=== PATIENT | female | born 1980 | race Caucasian/White ===

== ENCOUNTER 2017-08-09 02:42 | Emergency (ER) | payer OTHER ==
[~2017-08-09] VITALS: Ht 172.7 cm; Wt 83.9 kg
[~2017-08-09 02:42] MED LIST: ALBU90OI INH; Cipro500 MG PO; FLUO10; IBUP800 PO; Keflex500 MG PO; LEVFLO500 PO; OXYACE5T PO; PHENA200 PO; Percocet 5-3251 EACH PO; SILENOR3 MG; Zithromax250 MG PO
[2017-08-09] MEDS ORDERED: TOPI25 PO (03:00)
[2017-08-09] MEDS ORDERED: NITR100 PO (03:01)
[2017-08-09] MEDS ORDERED: Prozac20 MG PO (03:01)
[2017-08-09] MEDS ORDERED: METR500 PO (03:02)
== END 2017-08-09 04:24 | disposition home or self-care (01) ==
LOC: ER 02:42
DX: S40.022A Contusion of left upper arm, initial encounter (principal); S40.021A Contusion of right upper arm, initial encounter; Y04.8XXA Assault by other bodily force, initial encounter; Z88.0 Allergy status to penicillin; Z88.8 Allergy status to other drugs, medicaments and biological substances; Z79.899 Other long term (current) drug therapy
CPT/HCPCS: 73030; 73070; 99283

== ENCOUNTER 2021-11-28 18:01 | Emergency (ER) | payer OTHER ==
[~2021-11-28] VITALS: Ht 172.7 cm; Wt 89.8 kg
[~2021-11-28 18:01] MED LIST changes: +METR500 PO; +NITR100 PO; +Prozac20 MG PO; +TOPI25 PO
[2021-11-28 19:02] LABS: BASOPHILS ABSOLUTE AUTO 0.07 K/mm3 (0.00-0.23); BASOPHILS PERCENT AUTO 0 % (0-2); EOSINOPHILS ABSOLUTE AUTO 0.12 K/mm3 (0.00-0.68); EOSINOPHILS PERCENT AUTO 1 % (0-6); Hematocrit 44.5 % (33.0-51.0); Hemoglobin 14.6 g/dL (11.5-16.0); IMMATURE GRAN ABSOLUTE AUTO 0.04 K/mm3 (0.00-0.10); IMMATURE GRAN PERCENT AUTO 0 % (0-1); LYMPHOCYTES ABSOLUTE AUTO 3.32 K/mm3 (0.84-5.20); LYMPHOCYTES PERCENT AUTO 20 % (21-46); MONOCYTES ABSOLUTE AUTO 1.03 K/mm3 (0.16-1.47); MONOCYTES PERCENT AUTO 6 % (4-13); Mean Corpuscular HGB 29.4 pg (26.0-34.0); Mean Corpuscular HGB Conc 32.8 g/dL (31.5-36.5); Mean Corpuscular Volume 90 fL (80-100); Mean Platelet Volume 10.3 fL (9.1-12.4); NEUTROPHILS ABSOLUTE AUTO 11.76 K/mm3 (1.96-9.15); NEUTROPHILS PERCENT AUTO 72 % (41-73); Platelet Count 373 K/mm3 (150-400); RDW Coefficient Variation 12.6 % (11.7-14.2); RDW Standard Deviation 41.4 fL (35.1-46.3); Red Blood Cell Count 4.97 M/mm3 (3.80-5.20); White Blood Cell Count 16.34 K/mm3 (4.00-11.30)
[2021-11-28 19:25] LABS: Alanine Aminotransfer (ALT/SGP 34 U/L (12-78); Albumin, Blood 3.7 g/dL (3.4-5.0); Albumin/Globulin Ratio 0.8 (0.8-1.8); Alk Phos 113 U/L (50-136); Anion Gap 6 mmol/L (6-16); Aspartate Aminotrans (AST/SGOT 19 U/L (12-37); Bilirubin, Total 0.3 mg/dL (0.1-1.0); Blood Urea Nitrogen 12 mg/dL (8-24); Bun/Creatinine Ratio 13.7 (12.0-20.0); CO2, Blood 25 mmol/L (21-32); Chloride, Blood 106 mmol/L (98-108); Creatinine, Blood 0.87 mg/dL (0.40-1.00); Globulin, Blood 4.4 g/dL (2.2-4.0); Glomerular Filtration Rate >60 (60-); Glucose, Blood 114 mg/dL (70-99); Potassium, Blood 3.9 mmol/L (3.5-5.5); Sodium, Blood 137 mmol/L (136-145); Total Protein, Blood 8.1 g/dL (6.4-8.2)
[2021-11-28 20:37] LABS: Source, Urine Clean Catch
[2021-11-28 20:40] LABS: Bilirubin, Urine Neg (Neg); Blood, Urine Neg (Neg); Glucose Qualitative, Urine Neg (Neg); Ketones, Urine Neg (Neg); Leukocyte Esterase, Urine Neg (Neg); Nitrite, Urine Neg (Neg); Protein, Urine Neg (Neg); Specific Gravity, Urine 1.005 (1.003-1.022); Urobilinogen, Urine NORM (Normal)
[2021-11-28 20:55] LABS: Appearance, Urine Clear (Clear); Color, Urine Yellow (P-Yellow)
[2021-11-28] MEDS ORDERED: Ultram50 MG PO (23:48)
== END 2021-11-29 00:12 | disposition home or self-care (01) ==
LOC: ER 18:01
PROVIDERS: Physician Assistant
DX: R10.9 Unspecified abdominal pain (principal); D72.829 Elevated white blood cell count, unspecified; M54.9 Dorsalgia, unspecified; Z88.0 Allergy status to penicillin; Z88.8 Allergy status to other drugs, medicaments and biological substances; Z79.899 Other long term (current) drug therapy; Z87.442 Personal history of urinary calculi
CPT/HCPCS: 36415; 74177; 80053; 81003; 85025; 96374; 96376; 99284-25; J1885; J7030; Q9967

== ENCOUNTER → 2022-01-08 | Outpatient (CLI) | payer OTHER ==
[~2022-01-08] MED LIST changes: +Ultram50 MG PO
== END | disposition home or self-care (01) ==
LOC: PLD 13:30 → LAB SHORT 13:30
DX: D06.1 Carcinoma in situ of exocervix (principal)
CPT/HCPCS: 88305; 88342

== ENCOUNTER → 2022-01-21 | Outpatient (CLI) | payer OTHER ==
[2022-01-21 13:19] LABS: Source, Urine Clean Catch
[2022-01-21 15:13] LABS: Appearance, Urine Cloudy (Clear); Bilirubin, Urine Neg (Neg); Blood, Urine 1+ (Neg); Glucose Qualitative, Urine Neg (Neg); Ketones, Urine Neg (Neg); Leukocyte Esterase, Urine Neg (Neg); Nitrite, Urine Neg (Neg); Protein, Urine Neg (Neg); Specific Gravity, Urine 1.015 (1.003-1.022); Urobilinogen, Urine NORM (Normal)
[2022-01-21 16:00] LABS: Color, Urine Pale Yellow (P-Yellow)
[2022-01-21 16:01] LABS: Amorphous Mod (0-Heavy); Bacteria Few /hpf; Squamous Epithelial Cells Few /hpf (Few)
== END | disposition home or self-care (01) ==
LOC: LAB SHORT 13:17 → LAB 13:17
PROVIDERS: Obstetrics & Gynecology
DX: N39.46 Mixed incontinence (principal)
CPT/HCPCS: 81001

== ENCOUNTER 2022-03-08 08:04 | Day surgery (SDC) | payer OTHER ==
[~2022-03-08] VITALS: Ht 172.7 cm; Wt 89.4 kg
[~2022-03-08 08:04] MED LIST changes: +BUSP5 PO; +OXAYDO5 M4; +OXYB5 PO
--- NOTE | 2022-03-08 16:47 | NUR ---
DISCHARGE SUMMARY PT A&OX4, VSS/RA, KASHIF PO, VOIDING, AMBULATING INDEPENDENTLY, 2 IVS DC'D, PAIN MANAGED WITH 5 OXY AND TYLENOL. LEFT FLOOR VIA WC WITH ALL PERSONAL POSSESSIONS, TO GO HOME WITH MOM. DC INSTRUCTIONS PROVIDED, PT REP UNDERSTANDING THOSE INSTRUCTIONS.
--- NOTE | 2022-03-09 14:29 | NUR ---
03/09/22 1429 Cira Weber VERIFICATIONS, AUDITS
== END 2022-03-08 17:10 | disposition home or self-care (01) ==
LOC: ORSCMMR 08:04 → ORD 09:30 → ORSCMMR 09:30 → SURS 12:23 → ORSCMMR 17:10
PROVIDERS: Obstetrics & Gynecology
PROC: 0UT94ZZ Resection of Uterus, Percutaneous Endoscopic Approach (ICD-10-PCS; principal; 2022-03-08 09:30)
PROC: 8E0W4CZ Robotic Assisted Procedure of Trunk Region, Percutaneous Endoscopic Approach (ICD-10-PCS; principal; 2022-03-08 09:30)
DX: D06.9 Carcinoma in situ of cervix, unspecified (principal); Z79.899 Other long term (current) drug therapy; E28.2 Polycystic ovarian syndrome; F41.8 Other specified anxiety disorders; F43.10 Post-traumatic stress disorder, unspecified
CPT/HCPCS: 58570; S2900; 88307; A9270; J0461; J0690; J1100; J1170; J2250; J2405; J2704; J3010; J7120

== ENCOUNTER 2022-07-03 07:14 | Emergency (ER) | payer OTHER ==
[~2022-07-03] VITALS: Ht 172.7 cm; Wt 89.8 kg
== END 2022-07-03 09:10 | disposition home or self-care (01) ==
LOC: ER 07:14
DX: H00.015 Hordeolum externum left lower eyelid (principal); Z88.0 Allergy status to penicillin; Z79.899 Other long term (current) drug therapy
CPT/HCPCS: 99282

== ENCOUNTER → 2023-05-03 | Outpatient (CLI) | payer OTHER ==
[2023-05-09 14:10] LABS: HPV 16 Positive (Negative); HPV 18 Negative (Negative); HPV OTHER HR TYPES Positive (Negative)
== END ==
LOC: LAB SHORT 12:12 → LAB 12:12
PROVIDERS: Obstetrics & Gynecology
DX: Z01.419 Encounter for gynecological examination (general) (routine) without abnormal findings (principal)
CPT/HCPCS: 87624; G0145

== ENCOUNTER 2023-11-14 10:13 | Day surgery (SDC) | payer OTHER ==
[~2023-11-14] VITALS: Ht 175.3 cm; Wt 83.7 kg
[~2023-11-14 10:13] MED LIST changes: +Lactated Ringer's 1,000 ML IV ONE
[2023-11-14] MEDS ORDERED: Amitriptyline H10 MG (10:39)
[2023-11-14] MEDS ORDERED: OMEP20ER (10:41)
[2023-11-14] MEDS ORDERED: METF500C (10:42)
[2023-11-14] MEDS ORDERED: Lactated Ringer's 1,000 ML IV ONE (11:07)
[2023-11-14] MEDS ORDERED: CeFAZolin Sodium 2,000 MG VIAL ONE (11:26)
[2023-11-14] MEDS ORDERED: FentaNYL Citrate 50 MCG/ML 2 ML Injection ONE (11:30)
[2023-11-14] MEDS ORDERED: Midazolam HCl 1MG / ML 2ML Vial ONE (11:59)
--- NOTE | 2023-11-14 12:07 | NUR ---
11/14/23 1207 Ivan Castillo BLOCK COMPLETE IN OR BY DR FU. SITE CHECK. VSS. PT TOLERATED WELL.
[2023-11-14 12:55] VITALS: BP 112/67
== END 2023-11-14 12:54 | disposition home or self-care (01) ==
LOC: ORSCSDS 10:13
PROVIDERS: Orthopaedic Surgery
PROC: 01N50ZZ Release Median Nerve, Open Approach (ICD-10-PCS; principal; 2023-11-14 11:30)
DX: G56.03 Carpal tunnel syndrome, bilateral upper limbs (principal); N18.9 Chronic kidney disease, unspecified; F41.9 Anxiety disorder, unspecified; F31.9 Bipolar disorder, unspecified; J45.909 Unspecified asthma, uncomplicated; Z79.899 Other long term (current) drug therapy
CPT/HCPCS: 82947; J0690; J2250; J3010; J7120

== ENCOUNTER → 2024-03-19 | Outpatient (CLI) | payer OTHER ==
[~2024-03-19] MED LIST changes: +Amitriptyline H10 MG; -Lactated Ringer's 1,000 ML IV ONE; +METF500C; +OMEP20ER
== END ==
LOC: LAB SHORT 15:09 → LAB 15:09
DX: N39.0 Urinary tract infection, site not specified (principal)
CPT/HCPCS: 87077; 87086; 87186

== ENCOUNTER 2024-06-02 10:42 | Observation (INO) | payer OTHER ==
[~2024-06-02] VITALS: Ht 172.7 cm; Wt 90.7 kg
[~2024-06-02 10:42] MED LIST changes: +AMIT25 PO; -Amitriptyline H10 MG; +METF500 PO; -METF500C; -OMEP20ER; +OMEP20ER PO
[2024-06-02 10:58] VITALS: BP 131/97
[2024-06-02 11:29] LABS: BASOPHILS ABSOLUTE AUTO 0.04 K/mm3 (0.00-0.23); BASOPHILS PERCENT AUTO 0 % (0-2); EOSINOPHILS ABSOLUTE AUTO 0.17 K/mm3 (0.00-0.68); EOSINOPHILS PERCENT AUTO 2 % (0-6); Hematocrit 44.7 % (33.0-51.0); Hemoglobin 14.4 g/dL (11.5-16.0); IMMATURE GRAN ABSOLUTE AUTO 0.02 K/mm3 (0.00-0.10); IMMATURE GRAN PERCENT AUTO 0 % (0-1); LYMPHOCYTES ABSOLUTE AUTO 2.75 K/mm3 (0.84-5.20); LYMPHOCYTES PERCENT AUTO 26 % (21-46); MONOCYTES ABSOLUTE AUTO 0.46 K/mm3 (0.16-1.47); MONOCYTES PERCENT AUTO 4 % (4-13); Mean Corpuscular HGB 30.7 pg (26.0-34.0); Mean Corpuscular HGB Conc 32.2 g/dL (31.5-36.5); Mean Corpuscular Volume 95 fL (80-100); Mean Platelet Volume 10.1 fL (9.1-12.4); NEUTROPHILS ABSOLUTE AUTO 7.07 K/mm3 (1.96-9.15); NEUTROPHILS PERCENT AUTO 67 % (41-73); Platelet Count 339 K/mm3 (150-400); RDW Coefficient Variation 11.9 % (11.7-14.2); RDW Standard Deviation 41.4 fL (35.1-46.3); Red Blood Cell Count 4.69 M/mm3 (3.80-5.20); White Blood Cell Count 10.51 K/mm3 (4.00-11.30)
[2024-06-02 11:29] LABS: Source, Urine Clean Catch
[2024-06-02 11:35] LABS: Appearance, Urine Hazy (Clear); Bilirubin, Urine Neg (Neg); Blood, Urine 2+ (Neg); Color, Urine Yellow (P-Yellow); Glucose Qualitative, Urine Neg (Neg); Ketones, Urine Neg (Neg); Leukocyte Esterase, Urine 2+ (Neg); Nitrite, Urine Neg (Neg); Protein, Urine 1+ (Neg); Urobilinogen, Urine NORM (Normal)
[2024-06-02] MEDS ORDERED: VILAZODONE HCL10 MG PO (11:44)
[2024-06-02] MEDS ORDERED: CYMBALTA30 M2 PO (11:44)
[2024-06-02] MEDS ORDERED: TRAZ150T57 PO (11:44)
[2024-06-02] MEDS ORDERED: ALPRAZOLAM110 PO (11:44)
[2024-06-02 11:50] LABS: Ethanol (Alcohol), Blood, Med <3 mg/dL; Salicylate 2.9 mg/dL (2.8-20.0)
[2024-06-02 11:55] LABS: White Blood Cells, Urine 25-50 /hpf (0-5)
[2024-06-02 11:57] LABS: Bacteria Many /hpf; Mucus Heavy (0-Heavy); Squamous Epithelial Cells Many /hpf (Few)
[2024-06-02 12:00] LABS: Alanine Aminotransfer (ALT/SGP 26 U/L (12-78); Albumin, Blood 3.5 g/dL (3.4-5.0); Albumin/Globulin Ratio 0.9 (0.8-1.8); Alk Phos 103 U/L (50-136); Anion Gap 10 mmol/L (3-11); Aspartate Aminotrans (AST/SGOT 22 U/L (12-37); Bilirubin, Total 0.2 mg/dL (0.1-1.0); Blood Urea Nitrogen 11 mg/dL (8-24); Bun/Creatinine Ratio 11.5 (12.0-20.0); CO2, Blood 22 mmol/L (21-32); Calcium, Blood 8.8 mg/dL (8.5-10.1); Chloride, Blood 114 mmol/L (98-108); Creatinine, Blood 0.95 mg/dL (0.40-1.00); Globulin, Blood 3.9 g/dL (2.2-4.0); Glomerular Filtration Rate 77 (60-); Glucose, Blood 152 mg/dL (70-99); Potassium, Blood 3.8 mmol/L (3.5-5.5); Sodium, Blood 142 mmol/L (136-145); Total Protein, Blood 7.4 g/dL (6.4-8.2)
[2024-06-02 12:01] LABS: Acetaminophen, Random <2.0 ug/mL (10.0-30.0)
[2024-06-02 12:13] LABS: Influenza A, PCR NEGATIVE (NEGATIVE); Influenza B, PCR NEGATIVE (NEGATIVE); Resp Syncytial Virus, PCR NEGATIVE (NEGATIVE); SARS-Cov-2 (COVID-19) PCR, MMC NEGATIVE (NEGATIVE)
[2024-06-02 12:30] LABS: U Cannabinoids Screen DETECTED
[2024-06-02 12:31] LABS: U Amphetamine Screen Not Detected; U Barbituate Screen Not Detected; U Benzodiazapine Screen DETECTED; U Buprenorphine Screen Not Detected; U Cocaine Screen Not Detected; U Methadone Screen Not Detected; U Methamphetamine Screen Not Detected; U Opiates Screen Not Detected; U Oxycodone Screen Not Detected; U Phencyclidine Screen Not Detected
== END 2024-06-02 16:07 | disposition other institution (70) ==
LOC: ER 10:42 → EOR 11:21
PROVIDERS: Physician Assistant; ADMIT Emergency Medicine
DX: T42.4X2A Poisoning by benzodiazepines, intentional self-harm, initial encounter (principal); F43.10 Post-traumatic stress disorder, unspecified; G43.909 Migraine, unspecified, not intractable, without status migrainosus; E28.2 Polycystic ovarian syndrome; F41.9 Anxiety disorder, unspecified; F43.21 Adjustment disorder with depressed mood; Z90.710 Acquired absence of both cervix and uterus; Z90.49 Acquired absence of other specified parts of digestive tract; Z90.89 Acquired absence of other organs; Z98.890 Other specified postprocedural states; Z88.1 Allergy status to other antibiotic agents; Z96.0 Presence of urogenital implants; Z88.8 Allergy status to other drugs, medicaments and biological substances; Z98.891 History of uterine scar from previous surgery; Z79.899 Other long term (current) drug therapy; Z79.84 Long term (current) use of oral hypoglycemic drugs; Z91.010 Allergy to peanuts; Z87.442 Personal history of urinary calculi; Z87.39 Personal history of other diseases of the musculoskeletal system and connective tissue
CPT/HCPCS: 0241U; 80053; 80320; 81001; 81025; 85025; 86592; 87086; 93005; 93010; 99285-25; G0378; G0480

== ENCOUNTER 2024-06-02 12:24 | Inpatient (IN) | payer OTHER ==
[~2024-06-02] VITALS: Ht 172.7 cm; Wt 91.0 kg
[~2024-06-02 12:24] MED LIST changes: +ALPRAZOLAM110 PO; +CYMBALTA30 M2 PO; +TRAZ150T57 PO; +VILAZODONE HCL10 MG PO
[2024-06-02] MEDS ORDERED: HydrOXYzine Pamoate 50 MG Cap PO PRN (15:00)
[2024-06-02] MEDS ORDERED: TraZODone HCl 50 MG Tab PO PRN (15:00)
[2024-06-02] MEDS ORDERED: FLU VACC TS2024-25(6MOS UP)/PF 45 MCG/0.5 ML SYRINGE IM ONE (15:00)
[2024-06-02] MEDS ORDERED: OLANZapine ODT 10 MG Tab MM PRN (15:00)
[2024-06-02] MEDS ORDERED: OLANZapine ODT 5 MG Tab MM PRN (15:00)
[2024-06-02 15:48] VITALS: BP 126/85
[2024-06-02 16:44] VITALS: BP 126/85
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
--- NOTE | 2024-06-03 05:17 | NUR ---
PATIENT IS ALERT AND ORIENTED AMD COOPERATIVE WITH CARE. TO BED VERY EARLY LAST NIGHT.(1930) DENIES SI,HI OR AVH. VERY SOFT VOICE AND HAS A VERY SAD AFFECT. SLEEP HOURS TONIGHT TO THIS POINT, >10 HOURS. WILL CONTINUE EVERY 15 MINUTE MONITORING FOR SAFETY.
[2024-06-03 08:10] VITALS: BP 141/83
--- NOTE | 2024-06-03 10:58 | NUR ---
DISCHARGE PLAN PT REPORTED FEELING BETTER AND WANTING TO GO HOME. SHE IS ON A VOLUNTARY ADMISSION. PT SPOKE TO DR. MARTINEZ AND PLAN TO DISCHARGE HOME AMA. DISCUSSED AMA WITH PATIENT AND SIGNED RELEASE FORM. ALSO DISCUSSED AND COMPLETED SAFETY PLAN.
--- NOTE | 2024-06-03 12:35 | NUR ---
DISCHARGE SUMMARY PT IS A VOLUNTARY ADMISSION. SHE DENIES ANY SI, HI OR AVH. SHE STATES "I DON'T KNOW WHY I DID THAT." SPOKE TO DR. MARTINEZ REGARDING WANTING TO GO HOME. DISCHARGE ORDERS WRITTEN AND PT. LEFT AMA. AMA RELEASE FORM DISCUSSED AND SIGNED. DISCHARGE INSTRUCTIONS REVIEWED AND SAFETY PLAN COMPLETED. PT HAD NO BELONGINGS ON ADMIT. PT'S MOTHER BROUGHT IN CLOTHES AND PT LEFT WITH HER MOTHER.
== END 2024-06-03 12:35 | disposition left against medical advice (07) | DRG 881 ==
LOC: BHU 12:24
PROVIDERS: ADMIT Psychiatry & Neurology Psychiatry
DX: F43.21 Adjustment disorder with depressed mood (principal); R45.851 Suicidal ideations; E28.2 Polycystic ovarian syndrome; G43.909 Migraine, unspecified, not intractable, without status migrainosus; Z53.29 Procedure and treatment not carried out because of patient's decision for other reasons; Z88.0 Allergy status to penicillin; Z88.8 Allergy status to other drugs, medicaments and biological substances

== ENCOUNTER → 2024-09-12 | Outpatient (CLI) | payer OTHER ==
[2024-09-20 11:09] LABS: HPV GENOTYPE 16 BY TMA Detected; HPV GENOTYPE 18/45 BY TMA Not Detected; HPV HIGH RISK BY TMA Detected; HPV SOURCE Cervical/Vag; HPVG SOURCE Cervical/Vag
== END ==
LOC: LAB 11:04 → LAB SHORT 11:04
PROVIDERS: Obstetrics & Gynecology
DX: Z87.410 Personal history of cervical dysplasia (principal)
CPT/HCPCS: 87624; 87625; G0123

== ENCOUNTER 2025-05-31 12:19 | Day surgery (SDC) | payer OTHER ==
[2025-05-31] VITALS (10 sets, daily range): BP systolic 88–148; BP diastolic 55–78
[~2025-05-31] VITALS: Ht 172.7 cm; Wt 76.6 kg
[~2025-05-31 12:19] MED LIST changes: +ALPR1 PO; +BUSP10 PO; -OXYB5 PO; +Oxybutynin Chlo15 MG PO; +TRAZ50 PO
[2025-05-31] MEDS ORDERED: CeFAZolin Sodium 2,000 MG in NS 100 ML IV SCH (13:15)
--- NOTE | 2025-05-31 13:47 | NUR ---
Ambulatory in Day Surgery. History, Chart, Medications and Allergies reviewed before start of procedure. Lungs clear T/O to Auscultation. Patient confirms NPO status and agrees with scheduled surgery. Pre-Op teaching done. Pt verbalizes understanding. Patient States Post-Procedure ride home has been arranged. Patient reports completing Chlorhexadine shower X2 prior to admission to hospital.
[2025-05-31] MEDS ORDERED: FentaNYL Citrate 50 MCG/ML 2 ML Injection ONE (15:31)
[2025-05-31] MEDS ORDERED: Dexamethasone Sod Phos 10 MG/ML 1ML VIAL ONE (15:54)
[2025-05-31] MEDS ORDERED: Ondansetron HCl 2 MG / ML 2ML Vial ONE (15:54)
[2025-05-31] MEDS ORDERED: Glycopyrrolate 0.2 MG/ML 5ML VIAL ONE (16:04)
[2025-05-31] MEDS ORDERED: HYDROmorphone HCl/Pf 1MG SYR IV PRN ×3 (16:05→16:45)
[2025-05-31] MEDS ORDERED: FentaNYL Citrate 50 MCG/ML 2 ML Injection IV PRN (16:10)
[2025-05-31] MEDS ORDERED: Ketorolac Tromethamine 30mg Vial IV PRN (16:10)
[2025-05-31] MEDS ORDERED: Metoclopramide HCl 5MG / ML 2ML Vial IV PRN (16:15)
[2025-05-31] MEDS ORDERED: HYDROcodone 5-APAP 325 TAB PO PRN (16:45)
--- NOTE | 2025-05-31 17:46 | NUR ---
REVIEWED DISCHARGE INSTRUCTIONS WITH PT. PT VERBALIZES UNDERSTANDING. DISCHARGED TO HOME-OUT VIA WHEELCHAIR WITH DISCHARGE INSTRUCTIONS AND BELONGINGS ON HAND.
== END 2025-05-31 17:46 | disposition home or self-care (01) ==
LOC: ORSCMMR 12:19 → ORD 13:30 → ORSCMMR 13:30
PROVIDERS: Urology
PROC: 0TC18ZZ Extirpation of Matter from Left Kidney, Via Natural or Artificial Opening Endoscopic (ICD-10-PCS; principal; 2025-05-31 13:30)
PROC: 0T778DZ Dilation of Left Ureter with Intraluminal Device, Via Natural or Artificial Opening Endoscopic (ICD-10-PCS; principal; 2025-05-31 13:30)
DX: N20.0 Calculus of kidney (principal); F41.8 Other specified anxiety disorders; E78.5 Hyperlipidemia, unspecified; E28.2 Polycystic ovarian syndrome; F43.10 Post-traumatic stress disorder, unspecified; Z79.84 Long term (current) use of oral hypoglycemic drugs; Z79.899 Other long term (current) drug therapy
CPT/HCPCS: A9270; C1758; C1769; C2617; J0690; J1100; J1885; J2405; J2704; J3010; J7120